=== PATIENT | female | born 1950 | race Caucasian/White ===

== ENCOUNTER → 2021-03-20 10:06 | Outpatient (BNVA) | payer MEDICARE, MEDICAID, SELFPAY | PROVIDERS: Family Provider Family Medicine; PCP Family Medicine; Referring Provider Pediatrics; Visit Provider Specialist | DX: G25.0 Essential tremor (principal); G31.84 Mild cognitive impairment of uncertain or unknown etiology; I69.398 Other sequelae of cerebral infarction | CPT/HCPCS: 99204 ==

== ENCOUNTER 2021-04-14 11:58 | Outpatient (CLI) | payer MEDICARE, MEDICAID, SELFPAY ==
--- NOTE | 2021-04-14 13:00 | MR_ITS ---
WS: [id number] MRI BRAIN WITHOUT CONTRAST HISTORY: Z86.73 - Personal history of transient ischemic attack, short-term memory loss. COMPARISON: None available. TECHNIQUE: Diffusion imaging, multiplanar T1, T2 and FLAIR imaging obtained. No evidence for acute infarct or hemorrhage. [place]-white matter differentiation is normal. Mild atrophy is symmetric bilaterally. There is mild chronic small vessel ischemic disease. Prior inf arct within the LEFT centrum semiovale. Ventricles and extra-axial spaces are normal. No inferior displacement of cerebellar tonsils. The sella turcica and pituitary gland are unremarkabl e. Dural venous sinuses and [place] of [place] demonstrate no abnormality on this unenhanced studies. Paranasal sinuses: Clear. Mastoid air cells: Normal. Calvarium and scalp: Hyperostosis frontalis interna. MR/MR head wo con* [id number] IMPRESSION: 1. No acute infarct. 2. Mild atrophy and very minimal chronic microvascular ischemic disease. 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
--- NOTE | 2021-04-14 13:00 | MR_ITS ---
WS: [id number] MRA ANGIOGRAPHY [place] HISTORY: Z86.73 - Personal history of transient ischemic attack COMPARISON: None available. TECHNIQUE: 3-D MR angiography is performed of the [place] of [place]. All images are reviewed including source images. Distal vertebral arteries are both patent. LEFT is mildly dominant. Tortuous RIGHT basilar artery loo ps to the RIGHT but it is intact. No aneurysm. Posterior cerebral arteries are small caliber with mil d atherosclerotic disease. No stenosis. Very small hypoplastic posterior communicating arteries. Intracranial portion of the internal carotid arteries are normal course and caliber. No significant a therosclerosis, stenosis or aneurysm identified. Middle and anterior cerebral arteries are both paten t with no significant disease. Anterior communicating artery is also normal. MR/MR angio head wo con [id number] IMPRESSION: 1. No aneurysm or occlusions within the intracranial carotid arteries or circl e of [place]. 2. Small caliber but patent posterior cerebral arteries and mildly hypoplastic posterior communicating arteries.
== END 2021-04-14 11:59 | disposition home or self-care (01) ==
LOC: RADSHAW 12:07
PROVIDERS: Visit Provider Specialist
DX: Z86.73 Personal history of transient ischemic attack (TIA), and cerebral infarction without residual deficits (principal)
CPT/HCPCS: 70544; 70551

== ENCOUNTER → 2021-06-07 10:37 | Outpatient (BNVA) | payer MEDICARE, MEDICAID, SELFPAY | PROVIDERS: Visit Provider Specialist | DX: G31.84 Mild cognitive impairment of uncertain or unknown etiology (principal); R25.1 Tremor, unspecified; Z86.73 Personal history of transient ischemic attack (TIA), and cerebral infarction without residual deficits | CPT/HCPCS: 96116; 99214 ==